=== PATIENT | male | born 1970 | race Caucasian/White ===

== ENCOUNTER 2019-06-22 13:25 | Outpatient (RCR) | payer OTHER | END 2019-06-22 14:18 | disposition home or self-care (01) | PROVIDERS: ATTEND Surgery | DX: Z02.71 Encounter for disability determination (principal) ==

== ENCOUNTER → 2019-06-22 | Outpatient (CLI) | payer OTHER ==
[~2019-06-22] MED LIST: AMITRIPTYLINE; BACLOFEN; MELOXICAM; METH4TAB PO
--- NOTE | 2019-06-22 13:34 | Diagnostic Imaging Report ---
INDICATION: Back pain and lower extremity numbness. TIME OF EXAM: 01:16 p.m. FINDINGS: Curvature and alignment to the lumbar spine is normal. Postop changes of anterior lumbar interbody fusion at L4-L5 level is noted. Hardware appears to be intact without fracture or loosening. Vertebral body heights are maintained. No acute bony abnormality is detected. Disc spaces are fairly well-preserved. IMPRESSION: Postoperative changes of L4-L5 anterior lumbar interbody fusion. No acute bony abnormality is detected. Dictated by: Dictated on workstation # [id number]
== END ==
LOC: RAD 12:36
PROVIDERS: ATTEND Surgery
DX: Z02.71 Encounter for disability determination (principal); M54.5 Low back pain; R20.0 Anesthesia of skin; Z98.1 Arthrodesis status
CPT/HCPCS: 72100